=== PATIENT | female | born 1985 | race Two or more races ===

== ENCOUNTER 2024-09-10 09:11 | Emergency (ER) | payer SELFPAY ==
--- NOTE | 2024-09-10 | XR_ITS ---
Examination: CT abdomen with intravenous contrast CT pelvis with intravenous contrast 2-D coronal reconstructions 2-D sagittal reconstructions Date and time of exam:September 10, 2024 1157 hours INDICATIONS: Right lower abdominal pain nausea vomiting today. CTDI: vol (mGy) 10.2 DLP: (mGycm) 580 Technique: Multiple axial sections of the abdomen and pelvis have been obtained. 64 slice high-resolution scanner used. 3 mm axial sections have been obtained, post intravenous injection 60 cc [id number] 2-D sagittal, coronal reconstructions obtained. Low dose protocols were performed. One or more of the following dose reduction techniques were used; automated exposure control, adjustment of the mA and/or KV according to patient size, use of iterative reconstruction technique. Findings: No focal liver or splenic lesions No gallstones No pancreatic or adrenal mass No renal or ureteral calculi, no hydronephrosis Normal appendix No bowel obstruction No diverticulitis No pelvic mass Urinary bladder intact IMPRESSION: Normal appendix No acute process in the abdomen or pelvis
[2024-09-10 09:14] VITALS: BMI 32.9
[2024-09-10 09:39] VITALS: BP 147/83; PULSE 77; RESP 19; TEMP 36.7; O2SAT 98
--- NOTE | 2024-09-10 09:49 | XR_ITS ---
Examination: CT abdomen with intravenous contrast CT pelvis with intravenous contrast 2-D coronal reconstructions 2-D sagittal reconstructions Date and time of exam:September 10, 2024 1042 hours INDICATIONS: Onset right lower abdominal pain today. CTDI: vol (mGy) 10.7 DLP: (mGycm) 626 Technique: Multiple axial sections of the abdomen and pelvis have been obtained. 64 slice high-resolution scanner used. 3 mm axial sections have been obtained, post intravenous injection 60 cc [id number] 2-D sagittal, coronal reconstructions obtained. Low dose protocols were performed. One or more of the following dose reduction techniques were used; automated exposure control, adjustment of the mA and/or KV according to patient size, use of iterative reconstruction technique. Findings: No focal liver lesion No splenic mass Mild splenomegaly Absent gallbladder No extrahepatic biliary tract dilatation Suspicious for mild pancreatic edema Aorta normal size No renal or ureteral calculi, no hydronephrosis Normal appendix No bowel obstruction or diverticulitis Absent uterus Urinary bladder intact Moderate osteopenia IMPRESSION: Normal appendix Suspicious for mild acute pancreatitis, consider MRCP follow-up
--- NOTE | 2024-09-10 09:49 | PD.EDRME ---
Rapid Medical Screening Exam RME Arrival date/time: 09/10/24 09:11 38-year-old female with no known medical history presents to the emergency room with a chief complaint of 10 out of 10 right lower quadrant abdominal pain and tenderness since this morning. Patient states she is having difficulty ambulating and is having some nausea. I have greeted and performed a focused initial assessment of this patient. A comprehensive ED assessment and evaluation of the patient, analysis of all test results, and completion of the medical decision making process will be conducted by additional ED providers. Chief Complaint: Abdominal Pain Time Seen by Provider: 09/10/24 09:32 Vital signs: Vital Signs Temperature 98.1 F 09/10/24 09:39 Pulse Rate 77 09/10/24 09:39 Respiratory Rate 19 09/10/24 09:39 Blood Pressure 147/83 H 09/10/24 09:39 Pulse Oximetry (%) 98 09/10/24 09:39 Oxygen Delivery Method Room Air 09/10/24 09:39 Vital signs reviewed by provider: Yes
[2024-09-10 09:59] LABS: Collection Type, Urine Clean Catch
[2024-09-10 10:14] VITALS: BP 130/85; PULSE 78; RESP 18; TEMP 36.4; O2SAT 100
[2024-09-10 10:15] LABS: Basophils % (Auto) 0 % (0-2.5); Eosinophils # (Auto) 0.1 Thou/mm3 (0.0-0.5); Eosinophils % (Auto) 1 % (0-10); Hematocrit 40.8 % (36.0-46.0); Hemoglobin 13.5 g/dL (12.0-16.0); Immature Granulocytes % (Auto) 0 % (0-0); Immature Granulocytes Auto 0.02 Thou/mm3 (0.00-0.00); Lymphocytes # (Auto) 2.2 Thou/mm3 (1.0-4.8); Lymphocytes % (Auto) 31 % (10-50); Mean Corpuscular HGB Conc 33.1 g/dl (31.0-37.0); Mean Corpuscular Volume 91 fL (80-100); Monocytes # (Auto) 0.4 Thou/mm3 (0.0-0.8); Monocytes % (Auto) 6 % (0-12); Neutrophils # (Auto) 4.4 Thou/mm3 (1.8-7.7); Neutrophils % (Auto) 62 % (37-80); Nucleated Red Blood Cell % 0 /100 WBC (0); Platelet Count 252 Thou/mm3 (140-440); RDW Standard Deviation 40.7 fL (36.4-46.3); White Blood Count 7.1 Thou/mm3 (3.6-11.0)
[2024-09-10 10:16] LABS: Bacteria,Urine Rare; Bilirubin,Urine Negative (Negative); Blood,Urine 2+ (Negative); Clarity,Urine Clear (Clear/Hazy); Color,Urine Yellow (Lt Yel-Yel); Glucose, Urine Negative (Negative); Ketones,Urine Trace (Negative); Leukocyte Esterase,Urine Negative (Negative); Nitrite,Urine Negative (Negative); Protein,Urine 1+ (Neg - Trace); RBC,Urine 10 /hpf (0-3); Specific Gravity,Urine 1.032 (1.001-1.035); Squamous Epithelial Cell,Urine 2 /hpf (0-5); Urobilinogen,Urine Negative mg/dL (0.0-1.0); WBC,Urine 1 /hpf (0-5)
[2024-09-10 10:32] LABS: Alanine Aminotransferase 20 U/L (10-49); Albumin, Serum 4.7 gm/dL (3.5-5.0); Albumin/Globulin Ratio 1.3 (1.2-2.2); Alkaline Phosphatase 59 U/L (46-116); Anion Gap 10 (7-16); Aspartate Amino Transferase 21 U/L (0-34); BUN/Creatinine Ratio 16 Ratio (12-20); Bilirubin,Total 0.8 mg/dL (0.3-1.2); Blood Urea Nitrogen 11 mg/dL (9-23); Calcium 9.1 mg/dL (8.3-10.6); Calcium (Corrected) 9.1 mg/dL (8.5-10.1); Carbon Dioxide 24.5 mMol/L (20.0-31.0); Chloride 105 mMol/L (98-107); Creatinine (Component) 0.7 mg/dL (0.6-1.3); Estimated Creatinine Clearance 107.9 mL/min (>60); Globulin 3.6 gm/dL (2.3-3.5); Glucose 91 mg/dL (74-106); Lipase 40 U/L (12-53); Osmolality,Calculated 276 (275-295); Potassium 3.6 mMol/L (3.4-5.1); Sodium 139 mMol/L (136-145); Total Protein 8.3 gm/dL (5.7-8.2); eGFR > 60 See Note
[2024-09-10 10:40] LABS: HCG Qualitative,Urine Negative
--- NOTE | 2024-09-10 11:10 | EDNOTE_ITS ---
<Statement entered by Hanh Ng MD - 09/10/24 15:15> As co-signing physician, I was present and available for consult prn. I concur with the plan and care as documented by the midlevel provider. ED General RME/HPI General Chief complaint: Abdominal Pain Stated complaint: SEVERE RLQ PAIN SINCE 0800 Time Seen by Provider: 09/10/24 09:32 Arrival date/time: 09/10/24 09:11 CC: Lower right quadrant abdominal pain HPI onset 8 AM this morning no prior history of similar events nothing yes night denies any nausea or vomiting no fever chills shortness of breath or difficulty breathing. RME / HPI RME / HPI narrative: 09/10/24 09:11 38-year-old female with no known medical history presents to the emergency room with a chief complaint of 10 out of 10 right lower quadrant abdominal pain and tenderness since this morning. Patient states she is having difficulty ambulating and is having some nausea. I have greeted and performed a focused initial assessment of this patient. A comprehensive ED assessment and evaluation of the patient, analysis of all test results, and completion of the medical decision making process will be conducted by additional ED providers. Related Data Previous Rx's ?Medication ?Instructions ?Recorded meloxicam 7.5 mg tablet 7.5 mg PO QDAY #10 tabs 08/28 09/21 Allergies Allergy/AdvReac Type Severity Reaction Status Date / Time No Known Allergies Allergy Verified 09/10/24 09:14 Review of Systems Review of Systems Narrative Review of Systems: GEN: No fever, no chills, no weight loss EYES: No discharge, no visual changes, no pain HEENT: No ear pain, no congestion, no sore throat PULM: No shortness of breath, no cough, no congestion CV: No chest pain, no dyspnea on exertion, no palpitations GI: No nausea, no vomiting, no diarrhea, + pain, no constipation : No frequency, no urgency, no dysuria MUSC/SKEL: No joint pain, no back pain SKIN: No rash PSYCH: No hallucinations, no depression HEME/LYMPH: No easy bleeding or bruising tendencies NEURO: No weakness, no headache Past Medical History Social History SMOKING STATUS: Never smoker ED Exam Narrative Physical exam: [General: Obese not in any acute distress Head normocephalic HEENT: Within acceptable limits Neck is supple nontender Chest equal chest rise nontender to palpation Respiratory: Clear to auscultation no wheezes crackles or rubs CV: Rate rhythm is regular no murmurs rubs or clicks Abdomen mild periumbilical pain, right lower quadrant pain low enough to be just proximal to the inguinal crease. No left lower quadrant or upper quadrant pain with palpation positive bowel sounds. Back: No CVA tenderness no spinous process tenderness from cervical spine thoracic and lumbar spine Skin: Intact no petechiae rash induration ulceration or crepitus Extremities: Moving all extremity against resistance cap refill less than 2 seconds neurosensory intact Neuro: Awake alert oriented x3 Glascow coma 15 no focal deficits] Course Quality Measures none Orders Category Date Time Status CT Screening NOW Care 09/10/24 09:[address] abdomen pelvis w con Stat Exams 09/10/24 Completed CBC Stat Lab 09/10/24 10:00 Completed CMP [Comprehensive Metabolic Panel] Stat Lab 09/10/24 10:00 Completed HCG Qualitative,Urine Stat Lab 09/10/24 09:55 Completed Lipase Stat Lab 09/10/24 10:00 Completed UA [Urinalysis] Stat Lab 09/10/24 09:55 Completed Urine Culture Stat Lab 09/10/24 09:55 Received Vital Signs Vital signs: Vital Signs Temperature 98.1 F 09/10/24 09:39 Pulse Rate 77 09/10/24 09:39 Respiratory Rate 19 09/10/24 09:39 Blood Pressure 147/83 H 09/10/24 09:39 Pulse Oximetry (%) 98 09/10/24 09:39 Oxygen Delivery Method Room Air 09/10/24 09:39 [facility] Patient data External records reviewed:: [facility] previous records Clinical information provided by:: patient Social determinants that could affect healthcare access:: none Patient has the following chronic illnesses:: Obesity How is presenting disease/condition affected by chronic disease/condition?: u neffected by Evaluation data The following diagnostics were reviewed and interpreted by me:: lab results and radiology exam(s) Lab and/or radiology exams considered but not ordered:: CBC shows no acute leukocytosis anemia thrombocytopenia CMP shows no significant electrolyte imbalances renal impairment transaminitis or T. bili elevation Urine shows 2+ blood rare bacteria hCG is negative. CT is negative for any acute finding Interpretation Summary: Lower abdominal pain Medications Medications considered but not ordered:: None Medication administrations:: None Consultations Consultation(s) initiated? (list below): No Diagnosis Differential Diagnosis ED Complaint MDM: Diverticulosis diverticulitis appendicitis Most likely diagnosis given after review of the tests above:: Abdominal pain with no acute finding Admission Indicated Admission indicated?: not indicated Explain why admission is indicated or not indicated:: Stable for discharge Admission Request Was there a request for admission?: No Disposition Plan Disposition Plan: Discharge Discharge Attestation Discharge Attestation: The patient and all family members were given an opportunity to ask questions and understood the discharge instructions. Discharge instructions specifically effects, indications for sooner follow up or return to the emergency department, and the expected course of current diagnosis. Patient condition: Stable Medical Decision Making Differential Diagnosis Differential Diagnosis: Diverticulosis diverticulitis appendicitis Lab Data 09/10/24 10:00 09/10/24 10:00 Labs: Lab Results 09/10/24 09/10/24 Range/Units 09:55 10:00 WBC 7.1 (3.6-11.0) Thou/mm3 RBC 4.50 (4.00-5.20) Miln/mm3 Hgb 13.5 (12.0-16.0) g/dL Hct 40.8 (36.0-46.0) % MCV 91 (80-100) fL MCH 30.0 (25.0-35.0) pg MCHC 33.1 (31.0-37.0) g/dl RDW Std Deviation 40.7 (36.4-46.3) fL Plt Count 252 (140-440) Thou/mm3 Neut % (Auto) 62 (37-80) % Lymph % (Auto) 31 (10-50) % Clarke % (Auto) 6 (0-12) % Eos % (Auto) 1 (0-10) % Baso % (Auto) 0 (0-2.5) % Neut # (Auto) 4.4 (1.8-7.7) Thou/mm3 Lymph # (Auto) 2.2 (1.0-4.8) Thou/mm3 Clarke # (Auto) 0.4 (0.0-0.8) Thou/mm3 Eos # (Auto) 0.1 (0.0-0.5) Thou/mm3 Baso # (Auto) 0.0 (0.0-0.2) Thou/mm3 Immature Gran # (Auto) 0.02 H (0.00-0.00) Thou/mm3 Absolute Nucleated RBC 0.00 (0.00-0.00) Thou/mm3 Immature Gran % 0 (0-0) % Nucleated RBC % 0 (0) /100 WBC Sodium 139 (136-145) mMol/L Potassium 3.6 (3.4-5.1) mMol/L Chloride 105 (98-107) mMol/L Carbon Dioxide 24.5 (20.0-31.0) mMol/L Anion Gap 10 (7-16) BUN 11 (9-23) mg/dL Creatinine 0.7 (0.6-1.3) mg/dL Estim Creat Clear Calc 107.9 (>60) mL/min eGFR > 60 (60 - ) See Note BUN/Creatinine Ratio 16 (12-20) Ratio Glucose 91 (74-106) mg/dL Calculated Osmolality 276 (275-295) Calcium 9.1 (8.3-10.6) mg/dL Corrected Calcium 9.1 (8.5-10.1) mg/dL Total Bilirubin 0.8 (0.3-1.2) mg/dL AST 21 (0-34) U/L ALT 20 (10-49) U/L Alkaline Phosphatase 59 (46-116) U/L Total Protein 8.3 H (5.7-8.2) gm/dL Albumin 4.7 (3.5-5.0) gm/dL Globulin 3.6 H (2.3-3.5) gm/dL Albumin/Globulin Ratio 1.3 (1.2-2.2) Lipase 40 (12-53) U/L Ur Collection Type Clean Catch Urine Color Yellow (Lt Yel-Yel) Urine Clarity Clear (Clear/Hazy) Urine pH 6.0 (5.0-7.0) Ur Specific [place] 1.032 (1.001-1.035) Urine Protein 1+ A (Neg - Trace) Urine Glucose (UA) Negative (Negative) Urine Ketones Trace (Negative) Urine Blood 2+ A (Negative) Urine Nitrite Negative (Negative) Urine Bilirubin Negative (Negative) Urine Urobilinogen (Auto) Negative (0.0-1.0) mg/dL Ur Leukocyte Esterase Negative (Negative) Urine RBC 10 H (0-3) /hpf Urine WBC 1 (0-5) /hpf Ur Squamous Epith Cells 2 (0-5) /hpf Urine Bacteria Rare (None) Urine HCG, Qual Negative Discharge Plan Plan Patient Disposition: HOME (Self Care) Patient condition on transfer: Stable Prescriptions/Referrals Prescriptions/Med Rec: New meloxicam 7.5 mg tablet 7.5 mg PO QDAY Qty: 10 0RF Referrals: Nilo Walker MD [Physician] - In 1 week No Primary/Family,Physician [Primary Care Provider] - In 1 week Problem List Clinical Impression: Abdominal pain Patient/Caregiver Discharge Instructions Other Activity Instructions:: Take the medication as needed for pain if is worsening of symptoms follow-up with your primary care provider. Education Materials: Abdominal Pain Print Language: Icelandic Stand Alone Forms: Nichole Award Info., Patient Portal Info Letter, Work/School Release PA/[employer] DEVELOP[employer] SPECIALIST Supervising Physician PA/[employer]ELOP[employer] SPECIALIST Supervising Physician: Fransisco Donald ENP
== END 2024-09-10 13:30 | disposition home or self-care (01) ==
PROVIDERS: Nurse Practitioner Family; Emergency Provider Emergency Medicine
DX: R10.31 Right lower quadrant pain (principal)
CPT/HCPCS: 36415; 74177; 80053; 81001; 81025; 83690; 85025; 87086; 99285; A4649; Q9967